=== PATIENT | male | born 1945 ===

== ENCOUNTER 2020-08-27 11:53 | Emergency (ER) | payer MEDICARE ==
[2020-08-27 12:04] VITALS: BP 158/96
--- NOTE | 2020-08-27 13:47 | XRay Report ---
Left hip 2 views INDICATION: Left hip pain. IMPRESSION: No fracture or subluxation of the left hip is identified. Signer Name: Josue Mendoza MD Signed: 08/27/2020 1:43 PM Workstation Name: [id number]
--- NOTE | 2020-08-27 13:55 | Emergency Department Report ---
ED Extremity Problem HPI - General Chief complaint: Back Pain/Injury Stated complaint: LT SIDE HIP PAIN Time Seen by Provider: 08/27/20 13:20 Source: patient Mode of arrival: Ambulatory Limitations: No Limitations - History of Present Illness Initial comments: Patient is a 75-year-old male presents emergency room with complaints of left- sided hip pain that began a month ago. Patient states he is here for a few months visiting from [place]. He denies any fall or injury. 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 He states sometimes he feels it when he is up walking around or when he turns over in bed. He denies any leg swelling, calf pain, nausea, vomiting, diarrhea, rash to the legs, chest pain, shortness of breath, abdominal pain, pain or swelling of the testicles, groin pain. Past medical history of hypertension, diabetes, CVA. No allergies to medications. - Related Data Previous Rx's Medication Instructions Recorded Last Taken Type Diclofenac Sodium [Voltaren 1 applicatio TP BID #20 gel..gram. 08/27/20 Unknown Rx Arthritis Pain] Meloxicam [Mobic] 7.5 mg PO QDAY #10 tablet 08/27/20 Unknown Rx Allergies Allergy/AdvReac Type Severity Reaction Status Date / Time No Known Allergies Allergy Verified 08/27/20 11:55 ED Review of Systems ROS: Stated complaint: LT SIDE HIP PAIN Other details as noted in HPI Comment: All other systems reviewed and negative ED Past Medical Hx - Past Medical History Previous Medical History?: Yes Hx Hypertension: Yes Hx CVA: Yes Hx Diabetes: Yes - Surgical History Past Surgical History?: No - Social History Smoking Status: Never Smoker Substance Use Type: None - Medications Home Medications: Home Medications Medication Instructions Recorded Confirmed Last Taken Type Diclofenac Sodium [Voltaren 1 applicatio TP BID #20 gel..gram. 08/27/20 Unknown Rx Arthritis Pain] Meloxicam [Mobic] 7.5 mg PO QDAY #10 tablet 08/27/20 Unknown Rx ED Physical Exam - General Limitations: No Limitations General appearance: alert, in no apparent distress - Head Head exam: Present: atraumatic, normocephalic - Eye Eye exam: Present: normal appearance - ENT ENT exam: Present: mucous membranes moist - Respiratory Respiratory exam: Present: normal lung sounds bilaterally. Absent: respiratory distress, wheezes, rales, rhonchi, stridor, chest wall tenderness, accessory muscle use, decreased breath sounds, prolonged expiratory - Cardiovascular Cardiovascular Exam: Present: regular rate, normal rhythm, normal heart sounds. Absent: systolic murmur, diastolic murmur, rubs, gallop - GI/Abdominal GI/Abdominal exam: Present: soft. Absent: distended, tenderness, guarding, rebound, rigid - Extremities Exam Extremities exam: Present: other (ttp to the left hip overlying the iliac crest, no deformity, no increased warmth, no edema, no erythema, no pedal edema, no skin changes, FROM of the LLE, neurovascularly intact) - Neurological Exam Neurological exam: Present: alert, oriented X3, normal gait - Psychiatric Psychiatric exam: Present: normal affect, normal mood - Skin Skin exam: Present: warm, dry, intact ED Course Vital Signs 08/27/20 11:55 Temperature 98.6 F Pulse Rate 66 Respiratory 18 Rate Blood Pressure 158/96 O2 Sat by Pulse 96 Oximetry ED Medical Decision Making - Radiology Data Radiology results: report reviewed Ordering Physician: DAWN DICKERSON Date of Service: 08/27/20 Procedure(s): XR hip 2-3V LT Accession Number(s): [id number] cc: DAWN DICKERSON Fluoro Time In Minutes: Left hip 2 views INDICATION: Left hip pain. IMPRESSION: No fracture or subluxation of the left hip is identified. Signer Name: Josue Mendoza MD Signed: 08/27/2020 1:43 PM Workstation Name: [id number] Transcribed By: Dictated By: Josue Mendoza MD Electronically Authenticated By: Josue Mendoza MD Signed Date/Time: 08/27/20 1343 DD/ 1342 TD/TT: - Medical Decision Making Patient is a 75-year-old male presents emergency room with complaints of left- sided hip pain that began a month ago. Patient states he is here for a few months visiting from [place]. He denies any fall or injury. 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 He states sometimes he feels it when he is up walking around or when he turns over in bed. He denies any leg swelling, calf pain, nausea, vomiting, diarrhea, rash to the legs, chest pain, shortness of breath, abdominal pain, pain or swelling of the testicles, groin pain. Past medical history of hypertension, diabetes, CVA. No allergies to medications. Vitals are stable. On exam:ttp to the left hip overlying the iliac crest, no deformity, no increased warmth, no edema, no erythema, no pedal edema, no skin changes, FROM of the LLE, neurovascularly intact. X-ray left hip IMPRESSION: No fracture or s ubluxation of the left hip is identified. Patient given prescription for Mobic and Voltaren gel. Advised patient to follow-up with primary care doctor and orthopedic doctor. Patient has no clinical signs of DVT, septic joint, gout, acute arterial occlusion. Advised patient Please use medication as prescribed. Follow-up with a primary care doctor. Follow-up with a orthopedic doctor. Return to emergency room immediately for any new or worsening symptoms. Critical care attestation.: If time is entered above; I have spent that time in minutes in the direct care of this critically ill patient, excluding procedure time. ED Disposition Clinical Impression: Left hip pain Disposition: TO HOME OR SELFCARE Is pt being admited?: No Does the pt Need Aspirin: No Condition: Stable Instructions: Hip Pain Additional Instructions: Please use medication as prescribed. Follow-up with a primary care doctor. Follow-up with a orthopedic doctor. Return to emergency room immediately for any new or worsening symptoms. Prescriptions: Meloxicam [Mobic] 7.5 mg PO QDAY #10 tablet Diclofenac Sodium [Voltaren Arthritis Pain] 1 applicatio TP BID #20 gel..gram. Referrals: KAUR JONES MD [Staff Physician] - 2-[address] [facility] [Provider Group] - 2-3 Days FAVIO ESTRADA MD [Staff Physician] - 2-3 Days [facility] [Provider Group] - 2-3 Days Time of Disposition: 13:53 Print Language: INDONESIAN
== END 2020-08-27 14:15 | disposition home or self-care (01) ==
LOC: EDBD → ED 11:53
DX: M25.552 Pain in left hip (principal); I10 Essential (primary) hypertension; E11.9 Type 2 diabetes mellitus without complications; Z86.73 Personal history of transient ischemic attack (TIA), and cerebral infarction without residual deficits; Z79.899 Other long term (current) drug therapy